=== PATIENT | female | born 1970 | race Caucasian/White ===

== ENCOUNTER 2019-07-03 20:43 | Emergency (ER) | payer SELFPAY ==
[2019-07-03 21:40] LABS: ANION GAP 13.4; CHLORIDE,CL 100 mmol/L (101-111); SODIUM,NA 133 mmol/L (135-145)
--- NOTE | 2019-07-03 22:39 | EDM.PDOC ---
ED HPI GENERAL MEDICAL PROBLEM - General Chief Complaint: Chest Pain Stated Complaint: CHEST PAIN GOING DOWN ARMS Time Seen by Provider: 07/03/19 20:55 Source of Information: Reports: Patient, RN, RN Notes Reviewed History Limitations: Reports: No Limitations - History of Present Illness INITIAL COMMENTS - FREE TEXT/NARRATIVE: Patient is 48-year-old female who presented to the ER with chest pain radiating to both arms times 2 days. Patient reports pain at 8/10 and described it as sharp. The pain originates underneath the left breast and radiates into both arms. She denies any shortness of breath at this time. States chest pain has been intermittent and she was seen by a real estate teacher 18 days ago with labs, CT, and echo done. Patient reports she is not heard back from them since and has an upcoming appointment in 2 weeks. She denies any chest trauma, fall or injury. Past medical history as noted in the chart. She has not taken her medications as prescribed. She has not tried anything for chest pain. Denies any history of heartburn. She has nausea on and off with dizziness, but this started before she started having chest pain. The pain is constant at an 8 or 9 all day. Reports her brother had a heart disease at 37. Nothing makes pain better or worse. No diaphoresis. Left Mid-Sternal Chest Pain Score (Numeric/FACES): 7 - Related Data Allergies Allergy/AdvReac Type Severity Reaction Status Date / Time No Known Allergies Allergy Verified 07/03/19 21:15 Past Medical History Cardiovascular History: Reports: High Cholesterol, Hypertension Endocrine/Metabolic History: Reports: Diabetes, Type II - Past Surgical History GI Surgical History: Reports: Appendectomy, Cholecystectomy, Other (See Below) Other GI Surgeries/Procedures: Hernia Mesh Female Surgical History: Reports: Section, Hysterectomy Other Musculoskeletal Surgeries/Procedures:: Right rotator procedure. Left wrist fracture. Left knee scope Social & Family History - Family History Family Medical History: Noncontributory - Tobacco Use Smoking Status *Q: Current Every Day Smoker Years of Tobacco use: 29 Packs/Tins Daily: 0.5 - Caffeine Use Caffeine Use: Reports: Soda - Recreational Drug Use Recreational Drug Use: No ED ROS GENERAL - Review of Systems Review Of Systems: ROS reveals no pertinent complaints other than HPI. ED EXAM, GENERAL - Physical Exam Exam: See Below Exam Limited By: No Limitations General Appearance: Alert, WD/WN, No Apparent Distress Eye Exam: Bilateral Eye: EOMI, Normal Inspection, PERRL Ears: Normal External Exam, Normal Canal, Hearing Grossly Normal, Normal TMs Nose: Normal Inspection, Normal Mucosa, No Blood Throat/Mouth: Normal Inspection, Normal Lips, Normal Teeth, Normal Gums, Normal Oropharynx, Normal Voice, No Airway Compromise Head: Atraumatic, Normocephalic Neck: Normal Inspection, Supple, Non-Tender, Full Range of Motion Respiratory/Chest: No Respiratory Distress, Lungs Clear, Normal Breath Sounds, No Accessory Muscle Use, Other (pain in mid chest or xyphoid process. ) Cardiovascular: Normal Peripheral Pulses, Regular Rate, Rhythm, No Edema, No Gallop, No JVD, No Murmur, No Rub Peripheral Pulses: 3+: Radial (L), Radial (R), 4+: Posterior Tibial (L), Posterior Tibial (R), Dorsalis Pedis (L), Dorsalis Pedis (R) GI/Abdominal: Normal Bowel Sounds, Soft, Non-Tender, No Organomegaly, No Distention, No Abnormal Bruit, No Mass (Female) Exam: Deferred Rectal (Female) Exam: Deferred Back Exam: Normal Inspection, Full Range of Motion, NT Neurological: Alert, Oriented, CN II-XII Intact, Normal Cognition, Normal Gait, Normal Reflexes, No Motor/Sensory Deficits Psychiatric: Normal Affect, Normal Mood Skin Exam: Warm, Dry, Intact, Normal Color, No Rash Lymphatic: No Adenopathy Course - Vital Signs Last Recorded V/S: Last Vital Signs Temp 96.5 F 07/03/19 23:22 Pulse 59 L 07/03/19 23:22 Resp 14 07/03/19 23:22 BP 128/78 07/03/19 23:22 Pulse Ox 97 07/03/19 23:22 - Orders/Labs/Meds Orders: Active Orders 24 hr Category Date Time Status EKG 12 Lead [EKG Documentation Completion] [RC] URGENT Care 07/03/19 20:56 Active Labs: Laboratory Tests 07/03/19 07/03/19 07/03/19 Range/Units 21:06 21:06 21:06 WBC 9.1 (5.0-10.0) 10^3/uL RBC 4.83 (4.2-5.4) 10^6/uL Hgb 14.4 (12.0-16.0) g/dL Hct 41.8 (37.0-47.0) % MCV 86.5 (80-100) fL MCH 29.8 (27.0-34.0) pg MCHC 34.4 (33.0-35.0) g/dL Plt Count 339 (150-450) 10^3/uL Neut % (Auto) 46.8 (42.2-75.2) % Lymph % (Auto) 42.2 (20.5-50.1) % [place] % (Auto) 7.7 (2-8) % Eos % (Auto) 3.1 H (1.0-3.0) % Baso % (Auto) 0.2 (0.0-1.0) % Sodium 133 L (135-145) mmol/L Potassium 4.4 (3.6-5.0) mmol/L Chloride 100 L (101-111) mmol/L Carbon Dioxide 24.0 (21.0-31.0) mmol/L Anion Gap 13.4 BUN 12 (7-18) mg/dL Creatinine 0.7 (0.6-1.3) mg/dL Est Cr Clr Drug Dosing 85.79 mL/min Estimated GFR (MDRD) > 60 BUN/Creatinine Ratio 17.14 Glucose 291 H (74-105) mg/dL Calcium 9.0 (8.4-10.2) mg/dl Total Bilirubin 0.6 (0.2-1.0) mg/dL AST 18 (10-42) IU/L ALT 22 (10-60) IU/L Alkaline Phosphatase 81 (42-121) IU/L Troponin I < 0.02 (0.00-0.02) ng/ml Total Protein 7.6 (6.7-8.2) g/dl Albumin 3.9 (3.2-5.5) g/dl Globulin 3.7 Albumin/Globulin Ratio 1.05 Meds: Medications Discontinued Medications Generic Name Dose Route Start Last Admin Trade Name Freq PRN Reason Stop Dose Admin Ketorolac Tromethamine 30 mg 07/03/19 23:06 07/03/19 23:20 Toradol IVPUSH 07/03/19 23:07 30 mg ONETIME ONE Administration - Radiology Interpretation Free Text/Narrative:: Chest x-ray showed no active disease of the chest. No significant interval change when compared to the chest x-ray June 09, 2009. - Re-Assessments/Exams Free Text/Narrative Re-Assessment/Exam: Patient is 48-year-old female who presented with chest pain times 2 days. She had seen cardiology about 3 weeks ago with results pending, patient reports continuing chest pain. EKG was unremarkable with sinus rhythm at 63. Troponin was negative. She had tenderness with palpation of the mid chest wall. Chest x- ray was negative for active disease. Differential diagnosis are broad but not limited to angina, costochondritis, chest wall contusion. She was administered Toradol 30 mg IM and she reported relief of pain. Departure - Departure Time of Disposition: 00:30 Disposition: Home, Self-Care 01 Condition: Good Clinical Impression: Costochondral chest pain Instructions: Costochondritis, [id number] Forms: ED Department Discharge Care Plan Goals: Patient administered Toradol 30 mg with relief reported. Encouraged follow up with cardiology and PCP. Recommended treatment noted in the AVS. Return to the ER if symptoms worsens. Patient verbalized understanding. - My Orders Last 24 Hours: My Active Orders 07/03/19 20:56 EKG 12 Lead [EKG Documentation Completion] [RC] URGENT - Assessment/Plan Last 24 Hours: My Active Orders 07/03/19 20:56 EKG 12 Lead [EKG Documentation Completion] [RC] URGENT
[2019-07-03] MEDS: Ketorolac 30 MG/ML SDV IVPUSH ONE (23:20)
== END 2019-07-04 00:53 | disposition home or self-care (01) ==
LOC: DL.ED 20:43
DX: M94.0 Chondrocostal junction syndrome [Tietze] (principal); I10 Essential (primary) hypertension; E11.9 Type 2 diabetes mellitus without complications; F17.210 Nicotine dependence, cigarettes, uncomplicated
CPT/HCPCS: 36415; 71046; 80053; 84484; 85025; 93005; 96374; 99285-25; J1885

== ENCOUNTER 2021-10-17 15:59 | Emergency (ER) | payer SELFPAY ==
[2021-10-17] MEDS ORDERED: Ketorolac 30 MG/ML SDV IM ONE (17:32)
== END 2021-10-17 18:06 | disposition home or self-care (01) ==
LOC: DL.ED 15:59
DX: M25.552 Pain in left hip (principal); I10 Essential (primary) hypertension; E11.9 Type 2 diabetes mellitus without complications; E78.00 Pure hypercholesterolemia, unspecified; Z79.84 Long term (current) use of oral hypoglycemic drugs; Z79.899 Other long term (current) drug therapy; W00.0XXA Fall on same level due to ice and snow, initial encounter
CPT/HCPCS: 72100; 73502; 96372; 99283; J1885

== ENCOUNTER 2022-02-15 15:58 | Emergency (ER) | payer BC, MEDICAID | END 2022-02-15 18:10 | disposition home or self-care (01) | LOC: DL.ED 15:58 | DX: M25.522 Pain in left elbow (principal); M25.532 Pain in left wrist; E78.00 Pure hypercholesterolemia, unspecified; I10 Essential (primary) hypertension; E11.9 Type 2 diabetes mellitus without complications; Z87.891 Personal history of nicotine dependence; Z79.84 Long term (current) use of oral hypoglycemic drugs; Z79.899 Other long term (current) drug therapy | CPT/HCPCS: 73090-LT; 99283; 99283-25 ==

== ENCOUNTER 2022-07-14 07:29 | Emergency (ER) | payer BC ==
[2022-07-14] MEDS ORDERED: Sodium Chloride 0.9% 10 ML Syringe FLUSH PRN (08:05)
[2022-07-14 08:36] LABS: PTT,PARTIAL THROMBOPLSTIN TIME 25.9 SEC (22.0-34.0)
[2022-07-14 08:40] LABS: RESPIRATORY SYNCYTIAL VIR NAA NEGATIVE (NEGATIVE)
[2022-07-14 08:45] LABS: CORONAVIRUS COVID-19 NAA POSITIVE (NEGATIVE)
[2022-07-14 08:46] LABS: ANION GAP 10.1 mEq/L (7-13)
== END 2022-07-14 09:29 | disposition home or self-care (01) ==
LOC: DL.ED 07:29
DX: U07.1 COVID-19 (principal); R06.02 Shortness of breath; I10 Essential (primary) hypertension; E11.9 Type 2 diabetes mellitus without complications; Z79.899 Other long term (current) drug therapy; Z90.49 Acquired absence of other specified parts of digestive tract; Z90.710 Acquired absence of both cervix and uterus; Z86.16 Personal history of COVID-19; Z79.84 Long term (current) use of oral hypoglycemic drugs; Z87.891 Personal history of nicotine dependence
CPT/HCPCS: 0241U; 36415; 71045; 80053; 83735; 83880; 84443; 84484; 85025; 85379; 85610; 85730; 93005; 99285; J3490

== ENCOUNTER 2024-06-28 10:28 | Emergency (ER) | payer BC ==
[2024-06-28] MEDS: Ondansetron 4 MG/2 ML SDV IVPUSH ONE (11:16)
[2024-06-28] MEDS: Haloperidol Lactate 5 MG/ML SDV IVPUSH ONE ×2 (11:18→11:54)
[2024-06-28] MEDS: Sodium Chloride 0.9% 10 ML Syringe FLUSH PRN (11:19)
[2024-06-28 11:22] LABS: PROTHROMBIN TIME 9.9 SEC (9.0-12.0)
[2024-06-28] MEDS ORDERED: LORazepam 2 MG/ML SDV IVPUSH ONE (11:28)
[2024-06-28 11:30] LABS: ALBUMIN 4.3 g/dL (3.4-5.0); ANION GAP 19.1 mEq/L (7-13); BILIRUBIN TOTAL 0.6 mg/dL (0.2-1.0); BUN/CREATININE RATIO 10.3 (No establ ref range); CALCIUM 9.4 mg/dL (8.5-10.1); CREATININE 0.97 mg/dL (0.55-1.02); EST CRCL DRUG DOSING (CG) 58.58 mL/min; MAGNESIUM 1.8 mg/dL (1.8-2.4); POTASSIUM,K 4.1 mmol/L (3.5-5.1); PROTEIN TOTAL,TP 8.5 g/dL (6.4-8.2)
[2024-06-28 11:48] LABS: BASOPHILS PERCENT AUTO 0.2 % (0.0-1.0); EOSINOPHILS PERCENT AUTO 0.9 % (1.0-3.0); HEMATOCRIT 44.1 % (37.0-47.0); HEMOGLOBIN 14.7 g/dL (12.0-16.0); LYMPHOCYTES PERCENT AUTO 24.4 % (20.5-50.1); MEAN CORPUSCULAR HEMOGLOBIN 28.8 pg (27.0-34.0); MEAN CORPUSCULAR HGB CONC 33.3 g/dL (33.0-35.0); MEAN CORPUSCULAR VOLUME 86.5 fL (80-100); MONOCYTES PERCENT AUTO 6.6 % (2-8); NEUTROPHILS PERCENT AUTO 67.9 % (42.2-75.2); PLATELET COUNT,PLT 412 10^3/uL (150-450); WHITE BLOOD CELL COUNT,WBC 9.6 10^3/uL (5.0-10.0)
[2024-06-28] MEDS: Sodium Chloride 0.9% 500 ML IV ONE (11:54)
[2024-06-28] MEDS: Ketorolac 30 MG/ML SDV IVPUSH ONE (11:54)
[2024-06-28] MEDS: LORazepam 2 MG/ML SDV IVPUSH ONE (12:08)
== END 2024-06-28 15:00 | disposition home or self-care (01) ==
LOC: DL.ED 10:28
DX: R11.2 Nausea with vomiting, unspecified (principal); I10 Essential (primary) hypertension; E78.00 Pure hypercholesterolemia, unspecified; Z79.899 Other long term (current) drug therapy; Z86.16 Personal history of COVID-19; Z90.49 Acquired absence of other specified parts of digestive tract; Z90.710 Acquired absence of both cervix and uterus; Z79.84 Long term (current) use of oral hypoglycemic drugs
CPT/HCPCS: 36415; 80053; 83690; 83735; 84484; 85025; 85610; 96374; 96375; 99284; J1630; J1885; J2060; J2405; J7040; 99283; J3490